=== PATIENT | female | born 1995 | race Caucasian/White ===

== ENCOUNTER 2017-04-27 09:52 | Emergency (ER) | payer OTHER ==
[2017-04-27] MEDS ORDERED: NEOMYCIN/BACITRACIN/POLYMYXIN B OINTMENT PACKET TP ONE (11:30)
== END 2017-04-27 11:58 | disposition home or self-care (01) ==
LOC: EMS 09:56
DX: S69.92XA Unspecified injury of left wrist, hand and finger(s), initial encounter (principal); L30.9 Dermatitis, unspecified; W26.9XXA Contact with unspecified sharp object(s), initial encounter; Y93.89 Activity, other specified; Y92.89 Other specified places as the place of occurrence of the external cause; Y99.9 Unspecified external cause status
CPT/HCPCS: 99282